=== PATIENT | male | born 1985 | race African-American/Black ===

== ENCOUNTER 2017-02-12 17:36 | Emergency (ER) | payer OTHER ==
[~2017-02-12] VITALS: Ht 177.8 cm; Wt 84.5 kg
[~2017-02-12 17:36] MED LIST: DELTASONE20 MG PO; HABITROL,NICODE21 MG TD; INDOCIN25 MG PO; K-DUR20 MEQ PO; LEVAQUIN500 MG PO; NAPROSYN500 MG PO; NOHOMEMEDS; NORCO 7.5/321 TABLET PO; PLAVIX75 MG PO; PREDNISONE20 MG PO; Procardia XL,Adalat PO; Remove Nicotine Patc TD; TESSALON PERLE100 MG PO; VENTOLIN HFA18 GM IH; Vicodin,Lortab 5/500 PO
[2017-02-12 18:38] LABS: HEMATOCRIT 44.5 % (38.0-50.0); MCHC 31.9 G/DL (30.0-36.0); MCV 84.8 FL (86-99); MEAN PLAT.VOLUME 9.7 uM^3 (9.0-12.4); PLATELET COUNT 262 K/uL (156-360); RBC DIS.WIDTH-CV 11.6 % (11.8-14.6); RBC DIS.WIDTH-SD 35.2 % (39-53); RED BLOOD COUNT 5.25 M/uL (4.00-5.50); WHITE BLOOD COUNT 6.9 K/uL (4.1-10.2)
[2017-02-12 18:50] LABS: CHLORIDE 105 mEq/L (99-109); POTASSIUM 4.1 mEq/L (3.7-5.4); SODIUM 137 mEq/L (136-147)
[2017-02-12 18:52] LABS: GLUCOSE 88 mg/dL (70-99)
[2017-02-12 18:53] LABS: ANION GAP 9 MEQ/L (2-14)
[2017-02-12 18:56] LABS: GFR ESTIMATE (CALCULATED) > 59 mL/min/; UREA NITROGEN (BUN) 12 mg/dL (9-23)
[2017-02-12 18:59] LABS: TROP-I INTERPRETATION NEGATIVE; TROPONIN-I < 0.01 ng/mL (0.0-0.30)
[2017-02-12] MEDS ORDERED: INDOCIN50 MG PO (19:15)
[2017-02-12 19:21] VITALS: BP 112/65
== END 2017-02-12 19:22 | disposition home or self-care (01) ==
LOC: EME 17:36
PROVIDERS: Physician Assistant
DX: R07.89 Other chest pain (principal); M32.9 Systemic lupus erythematosus, unspecified; F17.200 Nicotine dependence, unspecified, uncomplicated
CPT/HCPCS: 71020; 80048; 84484; 85027; 85379; 93005; 99281; 99284

== ENCOUNTER 2017-11-09 21:42 | Emergency (ER) | payer OTHER ==
[~2017-11-09] VITALS: Ht 177.8 cm; Wt 93.3 kg
[~2017-11-09 21:42] MED LIST changes: +INDOCIN50 MG PO
[2017-11-09 22:03] LABS: HEMATOCRIT 40.1 % (38.0-50.0); HEMOGLOBIN 12.9 G/DL (12.5-16.6); MCH 27.2 PG (29.0-34.0); MCHC 32.2 G/DL (30.0-36.0); MCV 84.4 FL (86-99); PLATELET COUNT 267 K/uL (156-360); RBC DIS.WIDTH-CV 11.7 % (11.8-14.6); RBC DIS.WIDTH-SD 35.7 % (39-53); RED BLOOD COUNT 4.75 M/uL (4.00-5.50); WHITE BLOOD COUNT 7.6 K/uL (4.1-10.2)
[2017-11-09 22:14] LABS: CHLORIDE 103 mEq/L (99-109); SODIUM 139 mEq/L (136-147)
[2017-11-09 22:16] LABS: GLUCOSE 75 mg/dL (70-99)
[2017-11-09 22:20] LABS: CREATININE 0.9 mg/dL (0.6-1.3); GFR ESTIMATE (CALCULATED) > 59 mL/min/ (58.99-99999)
[2017-11-09 22:21] LABS: UREA NITROGEN (BUN) 10 mg/dL (9-23)
[2017-11-09 22:23] LABS: TROP-I INTERPRETATION NEGATIVE; TROPONIN-I < 0.01 ng/mL (0.0-0.30)
[2017-11-10] MEDS ORDERED: MOTRIN600 MG PO (01:13)
[2017-11-10] MEDS ORDERED: PERCOCET 5/31 TABLET PO (01:13)
[2017-11-10 01:33] VITALS: BP 125/66
== END 2017-11-10 01:34 | disposition home or self-care (01) ==
LOC: EME 21:42
DX: J90 Pleural effusion, not elsewhere classified (principal); M32.9 Systemic lupus erythematosus, unspecified; F17.200 Nicotine dependence, unspecified, uncomplicated
CPT/HCPCS: 71046; 71275; 80048; 84484; 85027; 85379; 93005; 99281; 99284; J1885; J7040